=== PATIENT | female | born 2000 | race Two or more races ===

== ENCOUNTER 2018-01-28 16:14 | Outpatient (CLI) | payer BC ==
--- NOTE | 2018-01-28 17:13 | RAD ---
THORACIC SPINE SERIES THREE VIEWS: 01/28/18 HISTORY: Neck and back pain. Vertebral bodies are normal in height. Disc spaces all appear well preserved. Pedicles are intact. No scoliotic change. IMPRESSION: Unremarkable thoracic spine series. POS: DANIEL[facility]
--- NOTE | 2018-01-28 17:13 | RAD ---
CERVICAL SPINE SERIES THREE VIEWS: 01/28/18 HISTORY: Neck pain. Vertebral bodies are normal in height. Disc spaces are well preserved. Facets are in normal alignment . No soft tissue swelling. IMPRESSION: Unremarkable cervical spine series. POS: DANIELLE
== END 2018-01-28 16:15 | disposition home or self-care (01) ==
LOC: SCSRAD 16:14
PROVIDERS: ATTEND Pediatrics
DX: M54.2 Cervicalgia (principal); M54.9 Dorsalgia, unspecified
CPT/HCPCS: 72040; 72072

== ENCOUNTER 2018-06-15 07:32 | Emergency (ER) | payer BC ==
[2018-06-15 08:21] LABS: Hemoglobin 13.8 g/dL (12.0-16.0); Mean Corpuscular HGB CONC 32.8 g/dL (32.0-36.0); Mean Corpuscular Hemoglobin 31.2 pg (25.0-35.0); Mean Corpuscular Volume 95.1 fL (78.0-98.0); Mean Platelet Volume 7.7 fL (7.4-10.4); Platelet Count 320 thou/uL (130-400); RBC Distribution Width 11.9 % (11.5-14.5); Red Blood Cell (RBC) Count 4.42 mill/uL (4.00-5.20); White Blood Cell (WBC) Count 11.4 thou/uL (4.8-10.8)
--- NOTE | 2018-06-15 08:26 | RAD ---
EXAM: Chest 2 views: HISTORY: Chest pain COMPARISON: None. FINDINGS: There is a normal-sized cardiomediastinal silhouette. There is no evidence of consolidation, mass, or pleural effusion. The bones are unremarkable. IMPRESSION: No evidence of acute cardiopulmonary disease
[2018-06-15 08:35] LABS: ALT (SGPT) 16 U/L (8-55); AST (SGOT) 14 U/L (5-34); Albumin 4.2 g/dL (3.5-5.0); Alkaline Phosphatase 73 U/L (40-150); Anion Gap 14 mmol/L (10-20); BUN (Urea Nitrogen) 14 mg/dL (7.0-18.7); Bilirubin, Total 0.3 mg/dL (0.2-1.2); Calc. Creatinine Clearance 0 mL/min (70-130); Calcium 10.1 mg/dL (7.8-10.44); Carbon Dioxide 26 mmol/L (22-29); Chloride 103 mmol/L (98-107); Estimated GFR-MDRD Greater than 90; Globulin 3.5 g/dL (2.4-3.5); Glucose 83 mg/dL (70-105); Potassium 3.9 mmol/L (3.5-5.1); Protein, Total 7.7 g/dL (6.0-8.3); Sodium 139 mmol/L (136-145)
[2018-06-15 08:39] LABS: Band 1 % (5-11); Eosinophils 2 % (0-10); Lymphocytes 57 % (28-48); MDiff Complete? YES; Monocytes 3 % (0-4); Neutrophil 36 % (31-61); RBC Morphology Normal; Reactive Lymphocytes 1 % (0-10)
== END 2018-06-15 09:32 | disposition home or self-care (01) ==
LOC: ERS 07:32
DX: R07.89 Other chest pain (principal); F41.9 Anxiety disorder, unspecified; Z79.899 Other long term (current) drug therapy
CPT/HCPCS: 36415; 71046; 80053; 82550; 84443; 84484; 85025; 93005

== ENCOUNTER 2019-09-20 09:13 | Outpatient (CLI) | payer BC ==
--- NOTE | 2019-09-21 12:24 | MRI ---
MRI BRAIN AND ORBITS WITH AND WITHOUT CONTRAST: DATE: 09/21/2019 HISTORY: 19-year-old female with "pseudotumor cerebri G 93.2 and mass behind left eye D 31.9" Dr. Murdock texted Fareed Whitehead, the radiographer technologist, with instructions to bring back the patient for post contrast T1 MPR whole brain COMPARISON: MRI of brain and orbits of 12/25/2018 from [facility] TECHNIQUE: Multiplanar, multisequence MRI of the brain plus thin slices through orbits, obtained pre and post IV injection of gadolinium based contrast agent. FINDINGS: There is a faint patch of intra-axial ill-defined enhancement in the lateral aspect of right temporal lobe consistent with capillary telangiectasia. The ventricles are normal in size and configuration. There is no midline shift or any other evidence of mass effect. There is no extra-axia l fluid collection. There is no intra-axial signal abnormality, other abnormal enhancement, mass, recent hemorrhage, or restricted diffusion. There is no evidence of intraorbital abnormal enhancement or mass. Bilateral extraocular muscles are symmetrically normal in thickness. Optic nerves are bilaterally normal. Cavernous sinuses are normal. Optic chiasm is normal. There are no secondary signs of idiopathic intracranial hypertension (pseudotumor cerebri): There is no empty sella or partially empty sella. No cerebellar tonsillar herniation. No excessive subarachnoid CSF space around the optic nerves, and no tortuosity of optic nerves. There is no evidence of dural venous sinus thrombosis. However, the evaluation for stenosis of the la teral lateral portions of transverse dural venous sinuses is very limited because a whole brain postcontrast MPR was not performed. There are numerous moderate size mucus retention cysts throughout much of the left maxillary sinus, a nd 1 moderate sized mucus retention cyst at the floor of right maxillary sinus. IMPRESSION: 1. Essentially normal study. 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 2. No secondary MRI signs of idiopathic intracranial hypertension. 3. However, we will attempt to bring the patient back for postcontrast T1 MPR of whole brain, with th in slice reconstructions in all 3 planes, to evaluate for stenosis of the lateral portions of the transverse dural venous sinuses (one of the causes of idiopathic intracranial hypertension). 4. Mucous retention cysts in the bilateral maxillary sinuses.
== END 2019-09-20 09:14 | disposition home or self-care (01) ==
LOC: TBSIIMAG 09:13
PROVIDERS: ATTEND Family Medicine
DX: H05.20 Unspecified exophthalmos (principal); G93.2 Benign intracranial hypertension; H57.89 Other specified disorders of eye and adnexa; H57.12 Ocular pain, left eye; J34.1 Cyst and mucocele of nose and nasal sinus; J34.89 Other specified disorders of nose and nasal sinuses; I78.8 Other diseases of capillaries
CPT/HCPCS: 70553

== ENCOUNTER 2020-10-16 13:09 | Outpatient (CLI) | payer BC | END 2020-10-16 13:10 | disposition home or self-care (01) | LOC: SCSRAD 13:09 | PROVIDERS: ATTEND Family Medicine | DX: S63.502A Unspecified sprain of left wrist, initial encounter (principal) ==

== ENCOUNTER 2021-12-14 12:16 | Outpatient (CLI) | payer BC | END 2021-12-14 12:17 | disposition home or self-care (01) | LOC: BICRAD 12:16 | PROVIDERS: ATTEND Internal Medicine Rheumatology | DX: M25.512 Pain in left shoulder (principal); M75.52 Bursitis of left shoulder ==

== ENCOUNTER 2022-04-19 04:22 | Emergency (ER) | payer BC ==
[2022-04-19] MEDS ORDERED: Mag-Al 1200 mg/1200 mg/30 ML UDCUP ONE (04:40)
[2022-04-19] MEDS ORDERED: Lidocaine Viscous Sol 2% 15 ml UD Cup ONE (04:40)
[2022-04-19 05:06] LABS: #Basophils 0.1 thou/uL (0.0-0.2); #Eosinphils 0.2 thou/uL (0.0-0.7); #Lymphocytes 4.5 thou/uL (1.20-3.40); #Monocytes 0.6 thou/uL (0.11-0.59); #Neutrophils 6.2 thou/uL (1.40-6.50); %Eosinophils 1.7 % (0.0-10.0); %Lymphocytes 38.8 % (21.0-51.0); %Monocytes 4.9 % (0.0-10.0); %Neutrophils 53.5 % (42.0-75.0); Hemoglobin 13.8 g/dL (12.0-16.0); Mean Corpuscular HGB CONC 33.8 g/dL (32.0-36.0); Mean Corpuscular Hemoglobin 31.9 pg (27.0-31.0); Mean Corpuscular Volume 94.2 fl (78.0-98.0); Mean Platelet Volume 8.1 fL (7.4-10.4); Platelet Count 282 10x3/uL (130-400); RBC Distribution Width 11.4 % (11.5-14.5); Red Blood Cell (RBC) Count 4.32 mill/uL (4.20-5.40); White Blood Cell (WBC) Count 11.5 10x3/uL (4.8-10.8)
[2022-04-19 05:26] LABS: ALT (SGPT) 16 U/L (8-55); AST (SGOT) 19 U/L (5-34); Albumin 4.3 g/dL (3.5-5.0); Alkaline Phosphatase 79 U/L (40-110); Anion Gap 16 mmol/L (10-20); BUN (Urea Nitrogen) 12 mg/dL (7.0-18.7); Bilirubin, Total 0.2 mg/dL (0.2-1.2); Calc. Creatinine Clearance 0 mL/min (70-130); Calcium 9.7 mg/dL (7.8-10.44); Carbon Dioxide 22 mmol/L (22-29); Chloride 102 mmol/L (98-107); Estimated GFR 116; Globulin 3.3 g/dL (2.4-3.5); Glucose 94 mg/dL (70-105); Protein, Total 7.6 g/dL (6.0-8.3); Sodium 136 mmol/L (136-145)
== END 2022-04-19 06:34 | disposition home or self-care (01) ==
LOC: ERS 04:22
DX: K21.9 Gastro-esophageal reflux disease without esophagitis (principal)
CPT/HCPCS: 36415; 71045; 80053; 84484; 85025; 93005

== ENCOUNTER 2022-12-06 16:43 | Outpatient (CLI) | payer BC | END 2022-12-06 16:44 | disposition home or self-care (01) | LOC: SCSRAD 16:43 | PROVIDERS: ATTEND Family Medicine | DX: M79.672 Pain in left foot (principal); M25.561 Pain in right knee; M25.562 Pain in left knee ==